=== PATIENT | female | born 1950 ===

== ENCOUNTER 2021-12-17 08:02 | Outpatient (CLI) | payer MEDICARE, BC, SELFPAY ==
--- NOTE | 2022-01-18 15:09 | WPDSLEEPSTUD ---
Sleep Study Date of Study: 12/17/21 Ordering Provider: NEGRA Clement Interpreting Physician: Tiffanie Santos MD Sleep Study Type: Split Polysomnogram Height: 1.57 m Weight: 104.78 kg Body Mass Index: 42.2 Neck Circumference (inches): 15 Mallory: 16 Reason for Sleep Study Loud snoring, excessive daytime sleepiness Sleep History Jacquie Saenz is a 71-year-old female with constant snoring that is frequently loud enough the other people complain about it. There is a family history with her daughter having obstructive sleep apnea.She does not awaken from sleep feeling short of breath, And does not awaken at night with heartburn, belching or coughing. She does not have trouble sleeping with a cold. She does not wake up gasping for breath at night. She does not have breathing problems at night observed by others. She occasionally sweats excessively at night which she attributes to her diabetes. She does not notice her heart pounding or beating irregularly at night. She occasionally falls asleep during the day, never falls asleep involuntarily. She rarely falls asleep while driving. She does not have loss of muscle tone with strong emotion. She does not have daytime difficulties due to excessive sleepiness. She does not feel paralyzed on waking or falling asleep. She does not have vivid dreamlike scenes on waking or falling asleep. She does not feel afraid to go to sleep. She does not have nightmares. She occasionally remembers her dreams. She does not have racing thoughts. She occasionally feels sad or depressed. She rarely has anxiety. She does not have muscular tension. She does not notice parts of her body jerking. She occasionally kicks at night. She frequently has crawling and aching feelings in her legs and leg pain at night. She does not have morning jaw pain. She does not grind her teeth during sleep. She occasionally is bothered by pain during the day. She frequently is awakened by pain at night. She rarely wakes up feeling stiff in the morning, rarely wakes up with sore achy muscles. She does not wake with pain in the neck or spine. She has headaches, fatigue, and memory problems. She is depressed. She takes antacids regularly. Normal bedtime is between 11:00 p.m. and 12 midnight, falling asleep within 10 minutes, waking up at night due to aches and pains. These awakenings usually occur by the middle of the night. When she wakes at night, she rubs her feet and tries to return to sleep. Sometimes it may take her up to an hour to return to sleep. Pean is what interrupts her sleep. She takes naps in the afternoon or evening. A short nap lasting 10 or 15 minutes might be refreshing. She feels refreshed when she wakes the morning. She feels better in the morning compared to other times of day. Habits: Former tobacco smoker. Caffeine 12 oz a day. [facility] Past Medical History Medical History Tinsley's palsy Diabetes Hypothyroidism Memory loss Social History Social History Smoking status: Former smoker Medications Home Medications Medication Instructions Recorded Confirmed Type atorvastatin 10 mg tablet 10 mg PO DAILY 12/09/21 12/09/21 History eszopiclone 2 mg tablet (Lunesta) 2 mg PO ONCE #1 tablet 12/09/21 12/09/21 Rx glimepiride 1 mg tablet 1 mg PO QAM 12/09/21 12/09/21 History hydrochlorothiazide 12.5 mg capsule 12.5 mg PO DAILY 12/09/21 12/09/21 History insulin detemir U-100 100 unit/mL 10 unit subcut QHS 12/09/21 12/09/21 History (3 mL) subcutaneous pen (Levemir FlexTouch U-100 Insulin) insulin detemir U-100 100 unit/mL 10 unit subcut QHS 12/09/21 12/09/21 History (3 mL) subcutaneous pen (Levemir FlexTouch U-100 Insulin) levothyroxine 25 mcg capsule 25 mcg PO DAILY 12/09/21 12/09/21 History metformin 500 mg tablet 500 mg PO DAILY 12/09/21 12/09/21 History naproxe
[2022-01-18 15:20] VITALS: BMI 42.2
--- NOTE | 2022-03-28 12:17 | SLEEP ---
pt refused machine therapy
== END 2021-12-18 06:57 | disposition home or self-care (01) ==
PROVIDERS: Visit Provider Physician Assistant
DX: G47.10 Hypersomnia, unspecified (principal); G47.33 Obstructive sleep apnea (adult) (pediatric); G25.81 Restless legs syndrome
CPT/HCPCS: 95811